=== PATIENT | female | born 1940 | race Caucasian/White ===

== ENCOUNTER 2024-02-09 14:44 | Outpatient (AMB) | payer MEDICARE, SELFPAY ==
--- NOTE | 2024-02-09 14:54 | AM.OFFWIN_ITS ---
Intake Vital Signs 02/09/24 14:55 Height 5 ft 1 in Weight 106 lb BMI 20.0 BP 140/62 H Blood Pressure Location Lt brachial Position Sitting Pulse 86 Pulse Source Pulse Oximeter Pulse Oximetry (%) 98 Oxygen Delivery Method Room Air Intake Visit Reasons: RN RADIATION ONCOLOGY Lower back pain/?UTI Intake Note: pt is here for possible uti, back pain Patient Tobacco Use Status: Never used Tobacco Allergies codeine Allergy (Mild, Verified 02/09/24 14:55) Stomach Upset Do you need a note to return to daycare/school/sports/work: No HPI HPI Comments History of Present Illness Details 83 y/o female patient who presents to [facility] clinic with c/o mid- thoracic back pain for few days now. This is a chronic persistent problem. Reports seeing Chiro for this. Reports pain right now at 3/10. Reports using IceHot, Acetaminophen and Heat blanket with no much relief. Denies Urinary or bowel symptoms. PFSH Social History Patient Tobacco Use Status: Never used Tobacco Review of Systems Const All systems reviewed & are unremarkable except as noted in HPI and below Physical Exam Vital Signs: Last Vital Signs Pulse 86 02/09/24 14:55 BP 140/62 H 02/09/24 14:55 Pulse Ox 98 02/09/24 14:55 Oxygen Delivery Method Room Air 02/09/24 14:55 BMI result Body Mass Index 20.0 Const General: comfortable and no acute distress Orientation/consciousness: patient oriented x3 General: Yes no CVA tenderness Back/Spine/Pelvis Back: no CVA tenderness Cervical Spine: normal cervical lordosis, cervical ROM normal, cervical muscular tenderness, cervical spasm and Cervical spine tenderness Thoracic/Lumbar Spine: thoraco-lumbar ROM normal Neuro General: patient oriented x3, gait normal and moves all extremities Psych Speech and movement: Normal speech and movement present Results AMB Urinalysis, Automated UA Leukoctes 0 Anil/uL Last Edit by Ronal Quintanilla CMA on 02/09/24 14:58 UA Nitrite Negative Last Edit by Ronal Quintanilla CMA on 02/09/24 14:58 UA Urobilinogen 0.2 mg/dL Last Edit by Ronal Quintanilla CMA on 02/09/24 14 :58 UA Protein 0 mg/dL Last Edit by Ronal Quintanilla CMA on 02/09/24 14:58 UA pH 5.5 Last Edit by Ronal Quintanilla CMA on 02/09/24 14:58 UA Blood 0 Ant/uL Last Edit by Ronal Quintanilla CMA on 02/09/24 14:58 UA Specific Gerton 1.010 Last Edit by Ronal Quintanilla CMA on 02/09/24 14:58 UA Ketone Negative Last Edit by Ronal Quintanilla CMA on 02/09/24 14:58 UA Bilirubin 0 mg/dL Last Edit by Ronal Quintanilla CMA on 02/09/24 14:58 UA Glucose 0 mg/dL Last Edit by Ronal Quintanilla CMA on 02/09/24 14:58 Results Reviewed Results Reviewed: Laboratory Last Values Urine pH (Auto) 5.5 02/09/24 14:57 Specific Gerton (Auto) 1.010 02/09/24 14:57 Urine Protein (Auto) 0 mg/dL 02/09/24 14:57 Glucose (UA)(Auto) 0 mg/dL 02/09/24 14:57 Urine Ketones (Auto) Negative 02/09/24 14:57 Urine Blood (Auto) 0 Ant/uL 02/09/24 14:57 Urine Nitrite (Auto) Negative 02/09/24 14:57 Urine Bilirubin (Auto) 0 mg/dL 02/09/24 14:57 Urine Urobilinogen (Auto) 0.2 mg/dL 02/09/24 14:57 Leukocyte Esterase (Auto) 0 Anil/uL 02/09/24 14:57 Assessment & Plan Assessment & Plan (1) Osteoarthritis of back: Code(s): M47.9 - Spondylosis, unspecified Plan: - IceHot - Acetaminophen for pain relief. - Muscle relaxants - Continue f/u with Chiro as scheduled. Orders: Orders AMB Urinalysis Automated Today Z13.9 - Encounter for screening, unspecified Medications: New acetaminophen 1,000 mg (2 x 500 mg) PO Q6H PRN 30 caps 0RF pain (scale score 7- 10) M47.9 - Spondylosis, unspecified lidocaine 5% leave on most painful area for up to 12 hrs 1 patch topical DAILY 30 ea 0RF back pain M47.9 - Spondylosis, unspecified metaxalone 800 mg PO TID 20 tabs 0RF back spasm M47.9 - Spondylosis, unspecified Coding Level of Care Code Est Pt Level 3 (22206) Diagnoses Osteoarthritis of back M47.9 Time Spent (min) 15
[2024-02-09 14:55] VITALS: BP 140/62; PULSE 86; O2SAT 98
== END 2024-02-09 15:20 | disposition home or self-care (01) ==
PROVIDERS: Visit Provider Nurse Practitioner Family
DX: M47.9 Spondylosis, unspecified (principal)
CPT/HCPCS: 81003; 99213

== ENCOUNTER 2024-07-13 11:11 | Outpatient (AMB) | payer MEDICARE, SELFPAY ==
--- OUTSIDE RECORDS SUMMARY | 2024-07-13 11:13 | XMS_ITS | Continuity of Care Document ---
Author Organization [facility] ter Address [address] [place] [address]- Care Team Providers Care Assembly Operator Name Role Phone Jesus Farley MD Primary Care Physician [place] [facility] [place] - 09/13/[address] [address]- Encounter Diagnosis Dislocation of shoulder, anterior, left, closed(Final) - 09/12/21 Discharge Disposition: A-D/C Home Attending Physician: Zohra Beaulieu MD Admitting Physician: Zohra Beaulieu MD Referring Physician: Not on Staff, Referring MD Allergies, Adverse Reactions, Alerts Substance Reaction Severity Status codeine gi upset Active cortisone gi upset Active Immunizations Given and Recorded Vaccine Date Status Refusal Reason influenza virus vaccine, inactivated 1 09/16/06 Gi matias Pneumococcal Vaccine (oldterm) 08/23/98 Given tetanus-diphtheria toxoids (Td) 05/15/98 Given 1Admin Note: VIS GIVEN NO EGG ALLERGY Medications aspirin 81 mg oral tablet 1 tablet = 81 mg, By Mouth, Daily, 0 Refills, Maintenance, 01/13/17 17:16:11 Start Date: 01/13/17 Status: Ordered Glucose Test Strips See Instructions, 100, 5, 5, 08/06/06 16:40:59, accuchek alison test strips--test 1-4 times daily, aodm type 2, [facility], [address] [place] [address] Start Date: 08/06/06 Status: Ordered Lancets See Instructions, 100, 5, 5, 08/06/06 16:42:10, accuchek alison lancets, test 1-4 times daily, [facility], [address] [place] [address] Start Date: 08/06/06 Status: Ordered lisinopril 40 mg oral tablet 1 tablet = 40 mg, By Mouth, Daily, # 30 tablet, 0 Refills, Maintenance, 01/18/14 11:24:51, Tablet Start Date: 01/18/14 Status: Ordered Magnesium Oxide By Mouth, 0 Refills, Maintenance, 01/13/17 17:17:19 Start Date: 01/13/17 Status: Ordered Metformin By Mouth, 0 Refills, Maintenance Start Date: 09/11/12 Status: Ordered simvastatin 20 mg oral tablet 20, mg, 1, tablet, By Mouth, Daily at bedtime, 90, tablet, 3, 3, 08/08/06 13:43:57, Print PAULINE Number, ADS [facility], [address] [place] [address], 144, Constant Indicator Start Date: 08/08/06 Stop Date: 08/03/07 Status: Ordered Vitamin D3 By Mouth, 0 Refills, Maintenance, 01/13/17 17:17:37 Start Date: 01/13/17 Status: Ordered Problem List Condition Effective Dates Status Health Status Inform ant Diabetes mellitus - adult onset(Confirmed) Active Glasses(Confirmed) Active Assessment Nurse Practitioner-Dr. Pratt(Confirmed) Active Hyperlipidemia(Confirmed) Active Hypertension(Confirmed) Active Osteoarthritis-shoulders(Confirmed) Active Osteopenia(Confirmed) Active Seasonal allergic rhinitis(Confirmed) Active Results Radiology Reports * Exam Date Time Procedure Performing Provider Status 09/12/21 8:28 PM Shoulder Min 2 Views Left Shay Bansal; Auth (Verified) Notes: (Shoulder Min 2 Views Left) Reason For Exam: with Pain;Post-Reduction RESULT: Shoulder Min 2 Views Left Shoulder Min 2 Views Left Hx of Present Illness: Trip and fall while gardening left shoulder deformity; Reason: Post-Reduction; with Pain; Clinical Question(s): Other:; reduction affected; Special Instructions: Needs axillaryview - call [phone] to help hold COMPARISON: X-ray earlier today. FINDINGS: AP, transscapular and axillary views. Previously seen dislocation has been reduced. No fracture. The humeral head has a high riding configuration suggesting rotator cuff injury, probably chronic due to erosive remodeling of the acromial undersurface. IMPRESSION: Successful reduction of previously seen dislocation as above. No fracture. High riding configuration of humeral head suggesting rotator cuff injury probably chronic as above. WSN: [id number] Ordering Physician: Shalonda Oropeza Dictated By: Handy Trevino MD Dictated Date/Time: 09/12/21 8:59 pm Reviewed By: Handy Trevino MD Signed By: Handy Trevino MD Signed Date/Time: 09/12/21 8:59 pm Transcribed By: RAF Transcribed Date/Time: 09/12/21 8:53 pm * Exam Date Time Procedure Performing Provider Status 09/12/21 5:04 PM Shoulder Min 2 Views Left Me lg Franklin; Auth (Verified) Notes: (Shoulder Min 2 Views Left) Reason For Exam: with Pain;Trauma RESULT: Shoulder Min 2 Views Left PROCEDURE: Shoulder Min 2 Views Left CLINICAL INDICATION: 80 years old Female with Hx of Present Illness: Trip and fall while gardening left shoulder deformity; Reason: Trauma; with Pain; Clinical Question(s): Fracture. COMPARISONS: None. FINDINGS: Bones and joints: Anterior inferior dislocation of the humeral head in relation to the glenoid. Posterior glenoid is irregular. There is a 5 mm subacromial spur. Soft Tissues: Regional soft tissues are unremarkable. No evidence of radiopaque foreign body. IMPRESSION: 1. Anterior inferior dislocation of the humeral head. 2. Irregularity in the posterior glenoid could represent a nondisplaced fracture. Thank you for allowing me to participate in the care of this patient. WSN: [id number] Ordering Physician: Shalonda Oropeza Dictated By: Robby Brian MD Dictated Date/Time: 09/12/21 5:07 pm Reviewed By: Robby Brian MD Signed By: Robby Brian MD Signed Date/Time: 09/12/21 5:07 pm Transcribed By: RAF Transcribed Date/Time: 09/12/21 5:05 pm Vital Signs Most recent to oldest [Reference Range]: 1 2 3 Oxygen Saturation [94-100 %] 98 % (09/13/21 1:00 AM) 98 % (09/12/21 7:55 PM) 100 % (09/12/21 7:08 PM) Pulse Rate [55-90 bpm] 78 bpm (09/13/21 1:00 AM) 75 bpm (09/12/21 7:55 PM) 70 bpm (09/12/21 7:08 PM) Blood Pressure [90-138/55-84 mm Hg] 146/62mm Hg *H* (09/13/21 1:00 AM) 140/56mm Hg *H* (09/12/21 7:55 PM) 133/51mm Hg (09/12/21 7:08 PM) Respiratory Rate [16-30 br/min] 16 br/min (09/13/21 1:00 AM) 18 br/min (09/12/21 7:55 PM) 14 br/min *L* (09/12/21 7:08 PM) Temperature [96.8-100.4 DegF] 97.8 DegF (09/12/21 3:33 PM) 97.4 DegF (09/12/21 3:09 PM) Mode of Delivery (Oxygen) Room air (09/13/21 1:00 AM) Room air (09/12/21 7:55 PM) Room air (09/12/21 7:08 PM) Blood pressure sites Arm, right (09/13/21 1:00 AM) Arm, right (09/12/21 7:55 PM) Arm, right (09/12/21 7:08 PM) Temperature Route Oral (09/12/21 3:33 PM) Oral (09/12/21 3:09 PM) Social History Social History Type Response Smoking Status Never smoker entered on: 01/18/14 Sex
--- OUTSIDE RECORDS SUMMARY | 2024-07-13 11:13 | XMS_ITS | Continuity of Care Document ---
Author Organization [facility] Address [address] [place] [address]- Care Team Providers Care Electrical Accessories I Assembler Name Role Phone Jesus Farley MD Primary Care Physician [phone] [place] [facility] [place] [facility] [id number] Date(s): 01/15/23 - 02/14/23 [facility] [address] [place], [place] [address] Attending Physician: Gordon Alicea Admitting Physician: AdmGordon espinoza Referring Physician: AdmtrGordon Allergies, Adverse Reactions, Alerts Substance Reaction Severity [...] 1-4 times daily, aodm type 2, ADS [facility], [address] [place] [address] Start Date: 08/06/06 Status: Ordered Lancets See Instructions, 100, 5, 5, 08/06/06 16:42:10, accuchek alison lancets, test 1-4 times daily, ADS [facility], [address] [place] [address] Start Date: 08/06/06 Status: Ordered lisinopril 40 [...] 3, 08/08/06 13:43:57, Print PAULINE Number, ADS [facility], [address] [place] [address], 144, Constant Indicator Start Date: 08/08/06 Stop Date: 08/03/07 Status: Ordered Vitamin D3 By Mouth, 0 Refills, Maintenance, 01/13/17 17:17:37 Start Date: 01/13/17 Status: Ordered Problem List Condition Confirmation Course Effective Dates Status H ealth Status Informant Diabetes mellitus - adult onset Confirmed Active Glasses Confirmed Active Rat Poisoner-Dr. Pratt Confirmed Active Hyperlipidemia Confirmed Active Hypertension Confirmed Active Osteoarthritis-should ers Confirmed Active Osteopenia Confirmed Active Seasonal allergic rhinitis Confirmed Active Social History Social History Type Response Smoking Status Never smoker entered on: 01/18/14 Sex Patient Care team information Care Team Personnel Name: Miles Schilling CRNA Position: [facility] Associate Professional Member Role: Primary Care Nurse Address: Address: [address] [place] [address] [place] [address]- Name: Jesus Farley MD Position: [facility] Physician (General Medicine) Member Role: PCP Address: Address: [address] [place] [address] Care Team Related Persons Name: VILAPETR Address: home [address] [place] [address]
--- OUTSIDE RECORDS SUMMARY | 2024-07-13 11:13 | XMS_ITS ---
Author Organization [facility] Address [address] [place] [address] Care Team Providers Care Dog Boarder Name Role Phone Jesus Farley MD Primary Care Provider Lai Sifuentes Unavailable [phone] ALLERGIES Allergen (clinical drug ingredient) Drug/Non Drug Allergy documented on EMR Reaction Allergy Type Onset Date Status codeine Codeine pain Drug Allergy Active REASON FOR VISIT Painful thick toenails which are aggrevated by shoes and causes difficulty standing/walking MEDICATIONS Medication SIG (Take, Route, Frequency, Duration) Notes Start Date End Date Status metFORMIN HCl 850mg twice a day Active Simvastatin 10 MG 1 tablet in the evening Orally Once a day for 30 day(s) Active Alendronate Sodium 70 MG 1 tablet 30 minutes before the first food, beverage or medicine of the day with plain water Orally for 30 day(s) Active amLODIPine Besylate 5 MG 1 tablet Orally Once a day for 30 day(s) Active Lisinopril 40 MG 1 tablet Orally Once a day for 30 day(s) Active Voltaren 1 % as directed Externally Active SOCIAL HISTORY Tobacco Use: Social History Observation Description Date Details (start date - stop date) Never Smoker NA - NA Sex Assigned At : Social History Observation Description Sex Assigned At Unknown Tobacco Use/Smoking Question Answer Notes Are you a: nonsmoker Alcohol Screen Question Answer Notes Did you have a drink contain ing alcohol in the past year? Yes How often did you have a dri nk containing alcohol in the past year? 2 to 4 times a month (2 points) Points 2 Interpretation Negative Tobacco use other than smoking: Question Answer Notes Are you an other tobacco user? No VITAL SIGNS Height 5ft in 09/26/2023 Weight 110 lbs 09/26/2023 BMI 21.48 kg/m2 09/26/2023 Encounters Encounter Location Date Provider Diagnosis [facility] [place] [address] [place] [id number] 09/26/2023 Lai Carey Type 2 diabetes mellitus with diabetic polyneuropathy E11.42 ; Tinea unguium B35.1 ; Pain in right toe(s) M79.674 ; Pain in left toe(s) M79.675 ; Other hammer toe(s) (acquired), right foot M20.41 and Primary osteoarthritis, right ankle and foot M19.071 ASSESSMENTS Encounter Date Diagnosis Assessment Notes Treatment Notes Treatment Clinical Notes 09/26/2023 Type 2 diabetes mellitus with diabetic polyneuropathy (ICD-10 - E11.42) 09/26/2023 Tinea unguium (ICD-1 0 - B35.1) 09/26/2023 Pain in right toe(s) (ICD-10 - M79.674) 09/26/2023 Pain in left toe(s) (ICD-10 - M79.675) 09/26/2023 Other hammer toe(s) (acquired), right foot (ICD-10 - M20.41) 09/26/2023 Primary osteoarthritis, right ankle and foot (ICD-10 - M19.071) PLAN OF TREATMENT Medication Medication Name Sig Start Date Stop Date Notes Voltaren 1 % as directed Externally Next Appt Details Follow Up: 1 Year, Reason: Provider Name:Lai Willem Carey, 10/01/2024 09:15:00 AM, [facility] [address], [place], [phone], Procedure Notes * Category Sub-Category Detail Notes Debride Nails 1-5 Procedure: Nail debrideme nt performed extensively to reduce/remove overall nail length and girth, subungual debris, and necrotic tissue, by manual and electrical means by use of a nail nipper and/or dremel, to more viable healthy nail plate or bed tissue 1-5. Silver nitrate used for any petechial bleeding as necessary. Patient chooses, no pharmaceutical tx ([id number]) Progress Notes * Examination Category Sub-Category Detail Notes Neurological SENSORY: Neurological exa m demonstrates, reduced vibration sensation, 5.07 monofilament test performed at plantar aspects of 5 varied sites per foot shows sensation, reduced , B/L BABINSKI REFLEX: absent Dermatologic SKIN FINDINGS: Skin exam reveal s normal color, texture, elasticity, and turgor. There are no masses, nor excrescences. The interspaces are clear, B/L Orthopedic GAIT ABNORMALITY: pronated, abdu cted, B/L DIGITAL DEFORMITIES: Digital contracture , DIPJ t6 with pop MUSCLE STRENGTH: 5/5 all groups in a symmetrical fashion , B/L General Examination GENERAL APPEARANCE: pleasant , alert, well nourished, well developed, well hydrated, with good attention to hygene/body habitus, and in no acute distress FOOT EXAM: Lower Extremity Neurological Exa m performed:: Yes Visual exam of foot performed:: Yes Date: 09/26/2023 Sensory testing performed:: sensations d iminished Pedal pulse taking performed:: 1+ ORIENTED: person,place, and ti me Ophthalmology Referral DIABETES EYE EXAM Diabetic Reti nopathy Screening:: Yes Vascular DP PULSES: 1/4, B/L PT PULSES: 0/4, B/L CAPILLARY FILL TIME: 3 secs. per digit, B/L SKIN TEMPERTURE GRADIENT OF THE LOWER EXTERMITIES: warm to cool, proximal to distal, B/L HAIR GROWTH/TEXTURE/ELASTICITY/TURGOR: n ormal, B/L EDEMA: 1/4, B/L, Foot TELANGECTASIA: absent VARICOSITIES: absent PIGMENTATION: normal, B/L Nails NAILS are: Elongated, overg rown, dystrophic, lytic, greater than 3mm thick, discolored and friable with crumbly malodorous subungual debris, with dull to no pain on palpation due to neuropathy, TA History and Physical Notes * HPI (History of Present Illness) Category Sub-Category Detail Notes Toe pain Nature: aching, tenderne ss, stiffness, swelling Location: 2nd toe, Right foot Duration: a year Onset/Cause: gradual Course: progressive Aggravated by: any pressure Treatments: none Severity/Quality: mild Painful Nails Pt States Last PCP Visit: Date:: 022 At Risk footcare Pt States Last PCP Visit: Date: 08/11 Misc D is present
--- OUTSIDE RECORDS SUMMARY | 2024-07-13 11:13 | XMS_ITS | Continuity of Care Document ---
Author Organization [facility] Address [address] [place] [address]- Care Team Providers Care Electrical And Radio Mechanic Name Role Phone Jesus Farley MD Primary Care Physician En[place] [facility] [place] Date(s): 05/28/24 - 06/27/24 [facility] [address] [place] [address]- Attending Physician: Admtr, Gordon Admitting Physician: Admtr, Gordon Referring Physician: Admtr, Ar8 Allergies, Adverse Reactions, Alerts Substance Reaction Severity [...] 1-4 times daily, aodm type 2, [facility]S [facility], [address] [place] [address] Start Date: 08/06/06 Status: Ordered Lancets See Instructions, 100, 5, 5, 08/06/06 16:42:10, accuchek alison lancets, test 1-4 times daily, ADS [facility], [address] [place] [address] Start Date: 08/06/06 Status: Ordered lisinopril 40 [...] 13:43:57, Print PAULINE Number, ADS [facility], [address] [place] [address], [address], Constant Indicator Start Date: 08/08/06 Stop Date: 08/03/07 Status: Ordered Vitamin D3 By Mouth, 0 Refills, Maintenance, 01/13/17 17:17:37 Start Date: 01/13/17 Status: Ordered Problem List Condition Confirmation Course Effective Dates Status H ealth Status Informant Diabetes mellitus - adult onset Confirmed Active Glasses Confirmed Active Mechanical Integrity Engineer-Dr. Pratt Confirmed Active Hyperlipidemia Confirmed Active Hypertension Confirmed Active Osteoarthritis-should ers Confirmed Active Osteopenia Confirmed Active Seasonal allergic rhinitis Confirmed Active Social History Social History Type Response Smoking Status Never smoker entered on: 01/18/14 Sex Patient Care team information Care Team Personnel Name: Miles Schilling CRNA Position: [facility] Associate Professional Member Role: Primary Care Nurse Address: Address: [address] [place] [address] [place] [address]- Name: Jesus Farley MD Position: [facility] Physician - Primary Care Member Role: PCP Address: Address: [address] [place] [address], [place] [address]- Care Team Related Persons Name: PETR VILA Address: home [address] [place] [address]
--- OUTSIDE RECORDS SUMMARY | 2024-07-13 11:13 | XMS_ITS | Continuity of Care Document ---
Author Organization [facility] ter Address [address] [place] [address]- Care Team Providers Care Player Manager Name Role Phone Jesus Farley MD Primary Care Physician [phone] [place] [facility] [place]/20/[place] - 12/20/[address] [address]- [facility] Attending Physician: Jesus Farley MD Allergies, Adverse Reactions, Alerts Substance Reaction [...] daily, aodm type 2, ADS [facility], [address] [place] [address] Start Date: 08/06/06 Status: Ordered Lancets See Instructions, 100, 5, 5, 08/06/06 16:42:10, accuchek alison lancets, test 1-4 times daily, [facility], [address] [place] [address] Start Date: 08/06/06 Status: Ordered lisinopril 40 [...] 3, 08/08/06 13:43:57, Print PAULINE Number, ADS [facility], [address] [place] [address], [address], Constant Indicator Start Date: 08/08/06 Stop Date: 08/03/07 Status: Ordered Vitamin D3 By Mouth, 0 Refills, Maintenance, 01/13/17 17:17:37 Start Date: 01/13/17 Status: Ordered Problem List Condition Effective Dates Status Health Status Inform ant Diabetes mellitus - adult onset(Confirmed) Active Glasses(Confirmed) Active Automotive Service Technician-Dr. Pratt(Confirmed) Active Hyperlipidemia(Confirmed) Active Hypertension(Confirmed) Active Osteoarthritis-shoulders(Confirmed) Active Osteopenia(Confirmed) Active Seasonal allergic rhinitis(Confirmed) Active Social History Social History Type Response Smoking Status Never smoker entered on: 01/18/14 Sex
--- OUTSIDE RECORDS SUMMARY | 2024-07-13 11:14 | XMS_ITS | Patient Health Record ---
[facility] [place] Address [address] [place] [address] Care Team Providers Care All Round Logger Name Role Phone Jesus Farley MD Primary Care Provider Lai Sifuentes Unavailable [phone] ALLERGIES Allergen (clinical drug ingredient) Drug/Non Drug Allergy documented on EMR Reaction Allergy Type Onset Date Status codeine Codeine pain Drug Allergy Active RESULTS Component Value Reference Range Notes HEMOGLOBIN A1C (GLYCOHEMOGLO BIN) Reviewed date:09/26/2023 09:33:45 AM Interpretation: Performing Lab: Notes/Report: TOTAL HEMOGLOBIN (HGBA1C) HEMOGLOBIN A1C (HH) HEMOGLOBIN A1C % (HH) 7 ESTIMATED AVG GLUCOSE REASON FOR REFERRAL No Information MEDICATIONS Medication SIG (Take, Route, Frequency, Duration) Notes Start Date End Date Status Voltaren 1 % as directed Externally Active metFORMIN HCl 850mg twice a day Active [...] Once a day for 30 day(s) Active SOCIAL HISTORY Tobacco Use: Social History [...] Are you an other tobacco user? No PROBLEMS Problem Type ICD Code Onset Dates Problem Status W/U Status Risk SNOMED Code Notes Problem Primary osteoarthritis, right ankle and foot (M19.071) Active confirmed Localized, primary osteoarthritis of the ankle and/or foot (299360734) Problem Other hammer toe(s) (acquired), right foot (M20.41) Active confirmed Acquired hamme r toe of right foot (7817529000178535 ) Problem Type 2 diabetes mellitus with diabetic polyneuropathy (E11.42) Active confirmed Polyneuropathy due to type 2 diabetes mellitus (250373687) VITAL SIGNS Height 5ft in 09/26/2023 Weight 110 lbs 09/26/2023 BMI 21.48 kg/m2 09/26/2023 Encounters Encounter Location Date Provider Diagnosis [facility] [address] [address] 09/26/2023 Lai Carey Type 2 diabetes mellitus with diabetic polyneuropathy E11.42 ; Tinea unguium B35.1 ; Pain in right toe(s) M79.674 ; Pain in left toe(s) M79.675 ; Other hammer toe(s) (acquired), right foot M20.41 and Primary osteoarthritis, right ankle and foot M19.071 ASSESSMENTS Encounter Date Diagnosis Assessment Notes Treatment Notes Treatment Clinical Notes 09/26/2023 Tinea unguium (ICD-1 0 - B35.1) 09/26/2023 Type 2 diabetes mellitus with diabetic polyneuropathy (ICD-10 - E11.42) 09/26/2023 Pain in right toe(s) (ICD-10 - M79.674) 09/26/2023 Pain in left toe(s) (ICD-10 - M79.675) 09/26/2023 Other hammer toe(s) (acquired), right foot (ICD-10 - M20.41) 09/26/2023 Primary osteoarthritis, right ankle and foot (ICD-10 - M19.071) PLAN OF TREATMENT Pending Test Test Name Order Date X ray : Foot, right 3V 09/27/2022 Next Appt Details Provider Name:Lai Carey, 10/01/2024 09:15:00 AM, [address], [address], [place], [address], Insurance Providers Payer Name Payer Address Payer Phone Subscriber Number Group Number Insured Name Patient Relationship to Insured Coverage Start Date Coverage End Date [employer] [address] [place] [address] [id number] Jaycee Gurrola Self - patient is the insured MEDICAL (GENERAL) HISTORY Medical History History ICD Code Back,Hip,and Knee pain CAD (Cholesterol) Diabetic Gall bladder problems High blood pressure Osteoporosis Surgical History Surgery Date(Month/Year) bladder surgery 2011 gall bladder 1975
[2024-07-13 11:43] VITALS: BP 132/78; PULSE 78; TEMP 36.7; O2SAT 98; BMI 20.2
--- NOTE | 2024-07-13 11:43 | AM.OFFWIN_ITS ---
Intake Vital Signs 07/13/24 11:43 Height 5 ft 1 in Weight 107 lb BMI 20.2 BP 132/78 Blood Pressure Location Rt brachial Position Sitting Pulse 78 Pulse Source Pulse Oximeter Temp 98.1 F Temp Source Oral Pulse Oximetry (%) 98 Oxygen Delivery Method Room Air Intake Visit Reasons: EP Severe back pain Intake Note: pt c/o ongoing back pain. Current flair Patient Tobacco Use Status: Never used Tobacco Allergies codeine Allergy (Mild, Verified 02/09/24 14:55) Stomach Upset Do you need a note to return to daycare/school/sports/work: No HPI EP Severe back pain HPI Details 83-year-old female patient presents toda with her daughter Kelley for exacerbation of thoracic back pain. This has been ongoing for many years. Has had imaging with PCP, and regularly sees chiropractor. She also has used topical products, Tylenol, and heating pad. She occasionally will get these flare ups, and experience muscle spasms on bilateral sides of mid thoracic spine. Denies any urinary symptoms. Was seen here for this back in February, and did well on muscle relaxers and Tylenol. Has not seen a [facility] or pain management center. Denies any radiating pain or weakness. [facility] Social History Patient Tobacco Use Status: Never used Tobacco Review of Systems Const All systems reviewed & are unremarkable except as noted in HPI and below Physical Exam Vital Signs: Last Vital Signs Temp 98.1 F 07/13/24 11:43 Pulse 78 07/13/24 11:43 BP 132/78 07/13/24 11:43 Pulse Ox 98 07/13/24 11:43 Oxygen Delivery Method Room Air 07/13/24 11:43 BMI result Body Mass Index 20.2 Const General: cooperative, healthy appearing and no acute distress Nutritional Appearance: thin Limitations: no limitations HEENT Head: Yes normal to inspection Resp Effort & Inspection: normal respiratory effort General: Yes no CVA tenderness Back/Spine/Pelvis Back: no CVA tenderness Cervical Spine: normal cervical lordosis and cervical ROM normal Thoracic/Lumbar Spine: thoracic and lumbar spine normal to inspection, straight leg raise negative bilaterally, paraspinal muscle tenderness bilaterally (with spasms) in the mid thoracic and thoraco-lumbar ROM limited with forward flexion, with lateral flexion to the right, with lateral flexion to the left, with rotation to the right and with rotation to the left Skin General skin exam: no rashes or lesions noted Neuro General: gait normal Extrem General: Yes capillary refill normal and Yes no clubbing, cyanosis or edema Psych Appearance: grossly normal Mental Status: mental status grossly normal Speech and movement: Normal speech and movement present Assessment & Plan Assessment & Plan (1) Chronic thoracic back pain: Code(s): M54.6 - Pain in thoracic spine; G89.29 - Other chronic pain Qualifiers: Back pain laterality: bilateral Qualified Code(s): M54.6 - Pain in thoracic spine; G89.29 - Other chronic pain Plan: Tylenol arthritis and short course of muscle relaxer ordered for patient, as this has helped her previously in the past during these flare-ups of her thoracic back pain. We reviewed indications, use, possible side effects of medications. She continues to see chiropractor regularly. I encouraged her to follow-up with PCP, and we discussed possible referral to [facility]/pain management center a [facility] for alternative treatment modalities such as injection therapy/ spinal cord stim. They are going to d/w PCP at upcoming visit. Recommended gentle stretching and heat/ice application as needed. Patient verbalizes understanding and agrees to plan. (2) Spasm of thoracic back muscle: Code(s): M62.830 - Muscle spasm of back Plan: As above. Medications: New cyclobenzaprine 5 mg PO BID 5 days PRN 10 tabs 0RF muscle spasm G89.29 - Other chronic pain, M54.6 - Pain in thoracic spine, M62.830 - Muscle spasm of back acetaminophen ER (Tylenol Arthritis Pain) 650 mg PO Q12H PRN 60 tabs 1RF pain G89.29 - Other chronic pain, M54.6 - Pain in thoracic spine, M62.830 - Muscle s pasm of back Coding Level of Care Code Est Pt Level 4 (90173) Diagnoses Chronic bilateral thoracic back pain M54.6; G89.29 Back pain laterality: bilateral Spasm of thoracic back muscle M62.830
== END 2024-07-13 13:10 | disposition home or self-care (01) ==
PROVIDERS: Visit Provider Nurse Practitioner Family
DX: M54.6 Pain in thoracic spine (principal); G89.29 Other chronic pain; M62.830 Muscle spasm of back
CPT/HCPCS: 99214